=== PATIENT | male | born 1990 | race Caucasian/White ===

== ENCOUNTER 2024-05-25 09:42 | Emergency (ER) | payer OTHER, SELFPAY ==
--- NOTE | 2024-05-25 09:59 | ED.GENADULT ---
HPI - General Adult General Chief complaint: Nausea/Vomiting/Diarrhea Stated complaint: sick Time Seen by Provider: 05/25/24 10:00 Source: patient, RN notes reviewed and old records reviewed Mode of arrival: ambulatory Limitations: no limitations History of Present Illness HPI narrative: 33-year-old male to [facility] for complaint of constipation, anal itching and anal discomfort for 2-3 days. Patient reports that he usually has a bowel movement daily. However, patient states that he started a new medication approximately 1 month ago for ADHD and that his bowel movements have become less frequent, more uncomfortable, with harder stool and blood on tissue when wiping. Patient has attempted to treat at home with [id number] creams without relief. Patient endorses that he does not maintain a balanced diet and that he is sure that it is a contributing factor. Patient denies allergies, abdominal pain, blood in stool, nausea, vomiting, pertinent medical history. Patient able to tolerate fluids by mouth. Patient anxious and seated comfortably in exam room. Respirations even and nonlabored. Patient in no acute distress. Related Data Home Medications Medication Instructions Recorded Confirmed atomoxetine 25 mg capsule mg PO 05/25/24 Allergies Allergy/AdvReac Type Severity Reaction Status Date / Time No Known Allergies Allergy Verified 05/25/24 09:55 Review of Systems Review of Systems: All systems reviewed & are unremarkable except as noted in HPI and below Constitutional: Constitutional: Reports no additional constitutional complaints Eyes: Eyes: Reports no additional eye complaints ENT: Reports system reviewed and no additional complaints, except as documented Cardiovascular: Cardiovascular: Reports no additional cardiovascular complaints, Denies chest pain and Denies dyspnea Respiratory: Respiratory: Reports no additional respiratory complaints, Denies cough and Denies dyspnea Gastrointestinal: Gastrointestinal: Reports as per HPI, Denies abdominal pain, Denies melena, Denies tenesmus, Denies coffee ground emesis, Reports constipation, Denies GI cramping, Denies fecal incontinence, Denies nausea and Reports other (anal discomfort during BM) Musculoskeletal: Musculoskeletal: Reports no additional musculoskeletal complaints Neurologic: Reports system reviewed and no additional complaints, except as documented Psychiatric: Psychiatric: Reports no additional psychiatric complaints PMFSH Comments At the time of my signature, I reviewed and agree with the nursing past medical, surgical, social, and family history. There is no relevant family history pertinent to the patient complaint. Exam Const: General: cooperative, healthy appearing, comfortable, no acute distress, alert, anxious and well nourished Nutritional Appearance: well nourished Orientation/consciousness: patient oriented x3 Limitations: no limitations HENMT: Head: normal to inspection Ears: external ears normal Face/Nose/Sinus: Normal external nose present, Normal nares present, normal facial exam, No erythema and No edema Face and sinus: normal facial exam, no erythema and no edema Mouth: Yes Normal oral and palatal mucosa present Eyes: General: appearance normal, both eyes and all related structures Neck: Neck: normal visual inspection, full ROM and no meningeal signs Lymphatic: no lymphadenopathy noted and no lymphedema noted Chest: Chest palpation & inspection: normal inspection of the chest Resp: Effort & Inspection: normal respiratory effort and able to speak in complete sentences Cardio: Jugular venous distension: no JVD Rate: regular rate Rhythm: regular rhythm GI: GI Palp: No abdominal tenderness Rectal Exam: No abscess, No Rectal prolapse, No Lesions present (GI), No Anal fissure(s) present, hemorrhoids, No Fistula present (GI) and Anal wink reflex intact Back/Spine/Pelvis: Cervical Spine: cervical ROM normal Skin:
[2024-05-25 10:04] VITALS: BP 123/91; PULSE 87; RESP 16; TEMP 36.8; O2SAT 100
== END 2024-05-25 10:35 | disposition home or self-care (01) ==
PROVIDERS: Emergency Provider Nurse Practitioner Family
DX: K64.9 Unspecified hemorrhoids (principal); K59.00 Constipation, unspecified
CPT/HCPCS: 99213; G0463